=== PATIENT | male | born 1950 | race African-American/Black ===

== ENCOUNTER 2018-08-20 05:24 | Inpatient (IN) | payer OTHER ==
[2018-08-20] MEDS: POLYMYXIN/BACITRACIN 1L IRRIG (06:42)
[2018-08-20] MEDS: THROMBIN 5000 UNIT VIAL (06:42)
[2018-08-20] MEDS ORDERED: GELATIN SIZE 100 SPONGE (06:42)
[2018-08-20] MEDS: BUPIVACAINE 0.25% (MPF) 30 ML INJ (06:42)
[2018-08-20] MEDS: CEFAZOLIN 2 GM/50 ML (PMX) 50 ML IVPB (06:56)
[2018-08-20] MEDS ORDERED: GLYCOPYRROLATE 0.4 MG INJ (07:13)
[2018-08-20] MEDS ORDERED: ROCURONIUM 50 MG INJ (07:13)
[2018-08-20] MEDS ORDERED: NEOSTIGMINE 3 MG/3 ML SYRINGE (07:13)
[2018-08-20] MEDS ORDERED: CEFAZOLIN 1 GM INJ (07:13)
[2018-08-20] MEDS ORDERED: PROPOFOL 20 ML (07:13)
[2018-08-20] MEDS ORDERED: FENTAnyl 50 MCG/ML VIAL (07:14)
[2018-08-20] MEDS ORDERED: DEXAMETHASONE 4 MG/ML 1 ML INJ (07:15)
[2018-08-20] MEDS ORDERED: ONDANSETRON 4 MG INJ (07:15)
[2018-08-20] MEDS ORDERED: MIDAZOLAM 1 MG/ML 2 ML INJ (07:15)
[2018-08-20] MEDS ORDERED: LABETALOL HCL 20MG INJ IV (07:30)
[2018-08-20] MEDS ORDERED: IPRATROPIUM (NEB) 0.5 MG/2.5 ML AMP HHN (07:30)
[2018-08-20] MEDS ORDERED: MIDAZOLAM 1 MG/ML 2 ML INJ IV (07:30)
[2018-08-20] MEDS ORDERED: ONDANSETRON 4 MG INJ IV (07:30)
[2018-08-20] MEDS ORDERED: EPHEDrine SULFATE 50 MG/5 ML SYG IV (07:30)
[2018-08-20] MEDS ORDERED: FENTAnyl 50 MCG/ML VIAL IV ×3 (07:30)
[2018-08-20] MEDS ORDERED: hydrALAzine 20 MG INJ IV (07:30)
[2018-08-20] MEDS ORDERED: DIPHENHYDRAMINE 50 MG INJ IV (07:30)
[2018-08-20] MEDS ORDERED: TRIMETHOBENZAMIDE 100 MG/ML VIAL IM (07:30)
[2018-08-20] MEDS ORDERED: HYDROmorphONE 1 MG/5 ML IV SYRINGE IV ×3 (07:30)
[2018-08-20] MEDS ORDERED: ALBUTEROL 0.083% (NEB) 2.5 MG/3 ML AMP HHN (07:30)
[2018-08-20] MEDS ORDERED: SUGAMMADEX SODIUM 200 MG/2 ML VIAL IV (09:00)
[2018-08-20] MEDS: DEXTROSE 5%-0.45% NACL 1,000 ML IV ×2 (09:35→15:37)
[2018-08-20] MEDS: HYDROmorphONE 0.2 MG/ML PCA IV (09:57)
[2018-08-20] MEDS ORDERED: ACETAMINOPHEN 325 MG TAB PO (10:00)
[2018-08-20] MEDS ORDERED: NACL 0.9% 3 ML SYG IV (10:00)
[2018-08-20] MEDS ORDERED: DIPHENHYDRAMINE 50 MG CAP PO (10:00)
[2018-08-20] MEDS ORDERED: BETHANECHOL 25 MG TAB PO (10:00)
[2018-08-20] MEDS ORDERED: NALOXONE (0.4 MG/ML) INJ IV (10:00)
[2018-08-20] MEDS ORDERED: ZOLPIDEM 5 MG TAB PO (10:00)
[2018-08-20] MEDS ORDERED: CEPASTAT LOZENGE MT (10:00)
[2018-08-20] MEDS ORDERED: DIAZEPAM 5 MG/ML SYG IM (10:00)
[2018-08-20] MEDS ORDERED: ALBUTEROL HFA 8 GM INHALER INH (11:00)
[2018-08-20] MEDS: CEFAZOLIN 1 GM/50 ML (PMX) 50 ML IVPB ×3 (12:00→23:34)
[2018-08-20] MEDS: TRIMETHOBENZAMIDE 100 MG/ML VIAL IM (12:00)
[2018-08-20] MEDS: ONDANSETRON 4 MG INJ IV ×2 (15:36→23:34)
[2018-08-20] MEDS: PROCHLORPERAZINE 10 MG TAB PO (18:11)
[2018-08-20] MEDS: RANITIDINE 150 MG TAB PO (20:26)
[2018-08-20] MEDS ORDERED: NON-FORMULARY/PATIENT OWN MED (Varenicline Tartrate (Chantix) 1 MG) PO (21:00)
[2018-08-21] MEDS: HYDROmorphONE 0.2 MG/ML PCA IV (01:55)
[2018-08-21 05:19] LABS: HEMATOCRIT 37.7 % (42.0-52.0); HEMOGLOBIN 12.4 g/dl (14.0-18.0)
[2018-08-21 05:46] LABS: ANION GAP 6 (5-13); BLOOD UREA NITROGEN 12 mg/dl (7-20); CALCIUM 8.9 mg/dl (8.4-10.2); CARBON DIOXIDE 29 mmol/L (21-31); CHLORIDE 105 mmol/L (97-110); CREATININE 0.85 mg/dl (0.61-1.24); Estimated GFR > 60 mL/min (>60); GLUCOSE 122 mg/dl (70-220); POTASSIUM 4.7 mmol/L (3.5-5.1); SODIUM 140 mmol/L (135-144)
[2018-08-21] MEDS: CEFAZOLIN 1 GM/50 ML (PMX) 50 ML IVPB (05:48)
[2018-08-21] MEDS: DEXTROSE 5%-0.45% NACL 1,000 ML IV ×2 (05:49→11:55)
[2018-08-21] MEDS ORDERED: BETHANECHOL 25 MG TAB PO (08:00)
[2018-08-21] MEDS: FLUTICASONE/VILANTEROL 100-25 INH (08:18)
[2018-08-21] MEDS: FERROUS SULFATE (EC) 325 MG TAB PO ×3 (08:18→20:27)
[2018-08-21] MEDS: DOCUSATE SODIUM 100 MG CAP PO ×2 (08:18→20:27)
[2018-08-21] MEDS: RANITIDINE 150 MG TAB PO ×2 (08:19→20:27)
[2018-08-21] MEDS: ASCORBIC ACID 500 MG TAB PO ×2 (08:19→20:27)
[2018-08-21 09:55] LABS: ADD UMIC YES; UR ASCORBIC ACID NEGATIVE (NEGATIVE); UR BILIRUBIN (Dip) NEGATIVE (NEGATIVE); UR BLOOD (Dip) 1+ mg/dL (NEGATIVE); UR CLARITY CLEAR (CLEAR); UR COLOR STRAW (YELLOW); UR GLUCOSE (Dip) NEGATIVE (NEGATIVE); UR KETONES (Dip) NEGATIVE (NEGATIVE); UR LEUKOCYTE ESTERASE (Dip) NEGATIVE Leu/ul (NEGATIVE); UR NITRITE (Dip) NEGATIVE (NEGATIVE); UR RBC 1 /HPF (0-5); UR SPECIFIC GRAVITY (Dip) 1.006 (1.003-1.030); UR TOTAL PROTEIN (Dip) NEGATIVE (NEGATIVE); UR UROBILINOGEN (Dip) NEGATIVE (NEGATIVE); UR WBC 1 /HPF (0-5)
[2018-08-21] MEDS: [UNRECOGNIZED DRUG - REMARK] XX ×2 (10:00→18:00)
[2018-08-21] MEDS: HYDROCODONE/APAP (5/325) TAB PO (19:40)
[2018-08-21] MEDS: AL HYDROX/MG HYDROX/SIMETH 30 ML CUP PO (20:35)
[2018-08-21] MEDS: DIAZEPAM 5 MG TAB PO (20:35)
[2018-08-22] MEDS: AL HYDROX/MG HYDROX/SIMETH 30 ML CUP PO (00:08)
[2018-08-22] MEDS: HYDROCODONE/APAP (5/325) TAB PO ×3 (00:08→18:46)
[2018-08-22] MEDS: DEXTROSE 5%-0.45% NACL 1,000 ML IV ×4 (01:35→21:09)
[2018-08-22] MEDS: [UNRECOGNIZED DRUG - REMARK] XX ×4 (02:00→21:09)
[2018-08-22] MEDS: FLUTICASONE/VILANTEROL 100-25 INH (09:20)
[2018-08-22] MEDS: RANITIDINE 150 MG TAB PO ×2 (09:21→21:05)
[2018-08-22] MEDS: DOCUSATE SODIUM 100 MG CAP PO ×2 (09:21→21:05)
[2018-08-22] MEDS: FERROUS SULFATE (EC) 325 MG TAB PO ×3 (09:21→21:05)
[2018-08-22] MEDS: BISACODYL 10 MG SUPP PR (09:21)
[2018-08-22] MEDS: ASCORBIC ACID 500 MG TAB PO ×2 (09:21→21:05)
[2018-08-22] MEDS: NA PHOSPHATE/BIPHOS 133 ML ENEMA PR ×2 (11:16→13:41)
[2018-08-23] MEDS: DIAZEPAM 5 MG TAB PO (02:10)
[2018-08-23] MEDS: HYDROCODONE/APAP (5/325) TAB PO ×4 (06:41→17:03)
[2018-08-23] MEDS: DOCUSATE SODIUM 100 MG CAP PO (09:54)
[2018-08-23] MEDS: FERROUS SULFATE (EC) 325 MG TAB PO ×2 (09:54→13:00)
[2018-08-23] MEDS: RANITIDINE 150 MG TAB PO (09:54)
[2018-08-23] MEDS: FLUTICASONE/VILANTEROL 100-25 INH (09:55)
[2018-08-23] MEDS: ASCORBIC ACID 500 MG TAB PO (09:55)
[2018-08-23] MEDS: [UNRECOGNIZED DRUG - REMARK] XX (10:00)
== END 2018-08-23 18:00 | disposition home or self-care (01) | DRG 517 ==
LOC: REC 05:24 → MS1 10:50
PROC: 01NB0ZZ Release Lumbar Nerve, Open Approach (ICD-10-PCS; principal; 2018-08-20 07:00)
PROC: 4A11X4G Monitoring of Peripheral Nervous Electrical Activity, Intraoperative, External Approach (ICD-10-PCS; 2018-08-20 07:00)
DX: M48.061 Spinal stenosis, lumbar region without neurogenic claudication (principal); Z87.891 Personal history of nicotine dependence
CPT/HCPCS: 72020; 80048; 81001; 85014; 85018; 86850; 86900; 86901; 86920; 87086; 88304; 93971; 97116; 97162; 97530